=== PATIENT | male | born 1975 | race Caucasian/White ===

== ENCOUNTER 2021-07-01 20:51 | Emergency (ER) | payer OTHER ==
[2021-07-01 20:56] VITALS: TEMP 100.6
--- NOTE | 2021-07-01 21:22 | ED ---
General Adult HPI - General Chief complaint: Upper Respiratory Infection Stated complaint: O2 low, Cough,Fatigue Time Seen by Provider: 07/01/21 21:08 Source: patient Mode of arrival: ambulatory Limitations: no limitations - History of Present Illness Initial comments: This patient is a 46-year-old man who presents here for evaluation of his respiratory status due to Covid infection. The patient reportedly has been having a little over a week of cough and congestion as well as fevers. His children had tested positive for Covid approximately February 20 and then he started feeling symptoms a couple of days after that. He was gasping that he had Covid infection as well. The patient had a pulse oximetry reading taken by his this evening while he was sleeping and it was in the mid 80s. She therefore had him come here for evaluation. The patient states he is not feeling dyspneic. His main complaint is post nasal drainage and coughing related to that. -: days(s) Location: chest Severity scale (1-10): 0 Consistency: constant Improves with: none Worsens with: none Associated Symptoms: cough Treatments Prior to Arrival: none - Related Data Home Medications Medication Instructions Recorded Confirmed Ascorbic Acid [Vitamin C] 1,000 mg PO DAILY 07/01/21 07/01/21 Cetirizine HCl [Zyrtec] 10 mg PO DAILY PRN 07/01/21 07/01/21 Cholecalciferol [Vitamin D3 (25 50 mcg PO DAILY 07/01/21 07/01/21 Mcg = 1000 Iu)] Dulaglutide [Trulicity] 3 mg SQ FR 07/01/21 07/01/21 Famotidine [Pepcid] 20 mg PO DAILY PRN 07/01/21 07/01/21 Lisinopril-Hctz 10-12.5 mg 1 tab PO DAILY 07/01/21 07/01/21 [Zestoretic 10-12.5] Metoprolol Succinate (ER) [Toprol 100 mg PO DAILY 07/01/21 07/01/21 Xl] Multivitamins, Thera [Multivitamin 1 tab PO DAILY 07/01/21 07/01/21 (formulary)] Zinc 50 mg PO DAILY 07/01/21 07/01/21 glipiZIDE XL [Glucotrol Xl] 10 mg PO DAILY 07/01/21 07/01/21 metFORMIN HCL ER [Glucophage XR] 1,000 mg PO DAILY 07/01/21 07/01/21 Previous Rx's Medication Instructions Recorded Dexamethasone [Decadron] 6 mg PO DAILY #10 tablet 07/01/21 Allergies Allergy/AdvReac Type Severity Reaction Status Date / Time No Known Allergies Allergy Verified 07/01/21 21:40 Review of Systems ROS Statement: Those systems with pertinent positive or pertinent negative responses have been documented in the HPI. ROS Other: All systems not noted in ROS Statement are negative. Constitutional: Reports: fever. Denies: weakness ENT: Reports: congestion Respiratory: Reports: cough. Denies: dyspnea, wheezes Cardiovascular: Denies: chest pain, palpitations, edema, syncope Gastrointestinal: Denies: abdominal pain, vomiting, diarrhea Genitourinary: Denies: dysuria Musculoskeletal: Denies: back pain Skin: Denies: rash Neurological: Denies: headache, weakness, numbness Past Medical History Past Medical History: Diabetes Mellitus, Hypertension History of Any Multi-Drug Resistant Organisms: None Reported Past Surgical History: Appendectomy Past Psychological History: No Psychological Hx Reported Smoking Status: Never smoker Past Alcohol Use History: None Reported Past Drug Use History: None Reported General Exam Limitations: no limitations General appearance: alert, in no apparent distress Head exam: Present: atraumatic, normocephalic Eye exam: Present: normal appearance. Absent: scleral icterus, conjunctival injection Neck exam: Present: normal inspection Respiratory exam: Present: normal lung sounds bilaterally. Absent: respiratory distress, wheezes, rales, rhonchi, stridor Cardiovascular Exam: Present: regular rate, normal rhythm, normal heart sounds. Absent: systolic murmur, diastolic murmur, rubs, gallop GI/Abdominal exam: Present: soft. Absent: distended, tenderness, guarding, rebound, rigid, mass Extremities exam: Present: normal inspection, normal capillary refill. Absent: pedal edema, calf tenderness Back exam: Present: normal inspection. Absent: CVA tenderness (R), CVA tenderness (L) Neurological exam: Present: alert Skin exam: Present: warm, dry, intact, normal color. Absent: rash Course Vital Signs 07/01/21 07/01/21 07/01/21 20:53 22:51 22:54 Temperature 100.6 F H Pulse Rate 101 H 85 Respiratory 20 20 22 Rate Blood Pressure 150/107 135/87 O2 Sat by Pulse 96 95 Oximetry Disposition Clinical Impression: COVID-19 Disposition: HOME SELF-CARE Condition: Good Instructions (If sedation given, give patient instructions): Coronavirus Disease 2019 (COVID-19) Prescriptions: Dexamethasone [Decadron] 6 mg PO DAILY #10 tablet Is patient prescribed a controlled substance at d/c from ED?: No Referrals: Richard Gil DO [Primary Care Provider] - 1-2 days
--- NOTE | 2021-07-01 21:35 | XR ---
EXAMINATION TYPE: XR chest 2V DATE OF EXAM: 07/01/2021 9:26 PM COMPARISON:None TECHNIQUE: Frontal and lateral views of the chest. CLINICAL INDICATION:Male, 46 years old with history of fever, dyspnea; FINDINGS: Lungs/Pleura: Low lung volumes are present. There is no evidence of pleural effusion, focal consolida tion, or pneumothorax. Pulmonary vascularity: Unremarkable. Heart/mediastinum: Cardiomediastinal silhouette is unremarkable. Musculoskeletal:No acute osseous pathology. IMPRESSION: No acute cardiopulmonary disease/process.
[2021-07-01 22:51] VITALS: BP 135/87; PULSE 85
[2021-07-01 22:55] VITALS: RESP 22
[2021-07-01] MEDS ORDERED: dexAMETHasone 2 MG TAB PO STA (23:11)
== END 2021-07-01 23:30 | disposition home or self-care (01) ==
LOC: EC 20:51
DX: U07.1 COVID-19 (principal); E11.9 Type 2 diabetes mellitus without complications; I10 Essential (primary) hypertension; Z79.84 Long term (current) use of oral hypoglycemic drugs; Z79.899 Other long term (current) drug therapy
CPT/HCPCS: 71046; 99283; J8540

== ENCOUNTER → 2022-12-10 | Outpatient (CLI) | payer OTHER ==
--- NOTE | 2022-12-10 11:52 | MR ---
EXAMINATION TYPE: MR lumbar spine wo/w con DATE OF EXAM: 12/10/2022 COMPARISON: X-ray 10/10/2022 HISTORY: Lower back pain, BLE radiculopathy. TECHNIQUE: T1 and T2 axial and sagittal, postcontrast T1 sagittal and axial images of the lumbar spi ne are submitted. CONTRAST: Gadavist 11.5 mL FINDINGS: There is no abnormal signal seen within the visualized spinal cord or paraspinal soft tissu es. At L1-2 there is hypertrophic change of the facets with no disc herniation or canal stenosis. Neural foramina patent. At L2-3 there is no degenerative disc disease, disc herniation, canal stenosis, or foraminal encroach ment. Mild hypertrophy of the facet joints. At L3-4 there is there is a large central disc herniation subligamentous. Ligamentum flavum and facet hypertrophy with diminutive spinal canal contribute to moderate canal stenosis and moderate bilatera l foraminal encroachment greater on the right with the disc herniation extending greater paracentrall y and laterally to the right. At L4-5 there is right paracentral and lateral disc herniation which contacts the exiting right nerve root. Correlate for radiculopathy at this level. Facet arthropathy and uncovertebral joint hypertrop hy are seen and there is moderate right-sided foraminal encroachment. At L5-S1 there is advanced facet arthropathy with central disc bulging but no focal herniation or can al stenosis. Mild bilateral foraminal encroachment. There may be a minimal 1 mm anterior listhesis of L5 relative to S1 which appears degenerative. There is a 7 mm tiny nodule in the left adrenal gland compatible with an adenoma. IMPRESSION: 1. Broad-based Central and right paracentral disc herniations L3-4 and L4-L5. Nerve root contact at b oth levels suspected correlate for radiculopathy at this level 2. Multilevel severe facet arthropathy as discussed above.
== END | disposition home or self-care (01) ==
LOC: RADMRIMAIN 08:59
PROVIDERS: ATTEND Family Medicine
DX: M51.16 Intervertebral disc disorders with radiculopathy, lumbar region (principal)
CPT/HCPCS: 72158; A9585

== ENCOUNTER → 2024-01-05 | Outpatient (CLI) | payer OTHER ==
--- NOTE | 2024-01-05 20:09 | US ---
EXAMINATION TYPE: US arterial LE single level DATE OF EXAM: 01/05/2024 2:09 PM CLINICAL INDICATION: Male, 48 years old with history of R23.8 OTHER SKIN CHANGES; loss of hair on leg s, patches of hot and cold on legs History of: Smoker: n Hypertension: y Diabetic: y Hyperlipidemia: y TIA/CVA: tia Previous Vascular Surgery: n CAD: n DE: n Vascular Ulcers: n Claudication: n Gangrene: n Doppler Waveforms: Right: Multiphasic Left: Multiphasic Right Brachial Pressure: 119 Left Brachial Pressure: 111 Ankle-Brachial Indices: Right: 1.2 Left: 1.3 (Vessel hardening > 1.4; Normal 0.9 - 1.4, Moderate 0.7 - 0.9, Severe 0.5-0.7) IMPRESSION: Normal bilateral BENSON.
== END | disposition home or self-care (01) ==
LOC: RADUSWWP 13:53
PROVIDERS: ATTEND Family Medicine
DX: R23.8 Other skin changes (principal)
CPT/HCPCS: 93922